=== PATIENT | male | born 1960 | race Caucasian/White ===

== ENCOUNTER 2021-06-08 16:56 | Inpatient (IN) | payer BC ==
[~2021-06-08] VITALS: Ht 188 cm; Wt 127.0 kg
[2021-06-08 17:33] LABS: BASOPHILS # (AUTO) 0.1 X10'3 (0-0.2); BASOPHILS % (AUTO) 0.6 % (0-1); EOSINOPHILS # (AUTO) 0.2 X10'3 (0-0.9); EOSINOPHILS % (AUTO) 1.2 % (0-6); HEMATOCRIT 51.1 % (42.0-52.0); HEMOGLOBIN 17.5 g/dl (14.0-17.9); LYMPHOCYTES # (AUTO) 1.8 X10'3 (1.1-4.8); LYMPHOCYTES % (AUTO) 10.7 % (21-51); MEAN CORPUSCULAR HEMOGLOBIN 31.6 PG (27.0-31.0); MEAN CORPUSCULAR HGB CONC 34.3 g/dL (33.0-36.5); MEAN CORPUSCULAR VOLUME 92.3 FL (78-98); MEAN PLATELET VOLUME 11.4 FL (7.4-10.4); MONOCYTES # (AUTO) 0.9 X10'3 (0-0.9); MONOCYTES % (AUTO) 5.5 % (2-12); NEUTROPHILS # (AUTO) 13.4 X10'3 (1.8-7.7); PLATELET COUNT 196 X10'3 (140-440); RED BLOOD COUNT 5.53 X10'6 (4.70-6.10); RED CELL DISTRIBUTION WIDTH 12.7 % (11.5-14.5); WHITE BLOOD COUNT 16.3 X10'3 (4.5-11.0)
[2021-06-08] MEDS ORDERED: ondansetron/PF 4mg/2ml inj IV ONE ×2 (17:40→19:25)
[2021-06-08] MEDS ORDERED: famotidine/PF 10 mg/ml inj IV ONE (17:40)
[2021-06-08] MEDS ORDERED: normal saline 1000ML IV soln IVB ONE ×2 (17:40→19:25)
[2021-06-08] MEDS ORDERED: pantoprazole 40MG/D5 100ML BAG 100 ML IV ONE (17:40)
[2021-06-08 17:44] LABS: ALANINE AMINOTRANSFERASE 44 U/L (12-78); ALBUMIN 4.2 G/DL (3.4-5.0); ALKALINE PHOSPHATASE 103 IU/L (46-116); ANION GAP 11 (8-16); ASPARTATE AMINO TRANSFERASE 61 U/L (10-37); BILIRUBIN,TOTAL 1.9 MG/DL (0.1-1.0); BLOOD UREA NITROGEN 13 MG/DL (7-18); BUN/CREATININE RATIO 11.8 (5.4-32.0); CHLORIDE 93 MMOL/L (99-107); GLUCOSE 273 MG/DL (70-104); POTASSIUM 3.7 MMOL/L (3.5-5.1); SODIUM 131 MMOL/L (135-145); TOTAL CARBON DIOXIDE 27.3 MMOL/L (24-32); TOTAL PROTEIN 8.5 G/DL (6.4-8.2); eGFR 69 ML/MIN
[2021-06-08 17:54] LABS: PLATELET ESTIMATE NORMAL; TOTAL CELLS COUNTED 100; TOXIC GRANULATION 1+
[2021-06-08] MEDS: morphine 4 MG/ML inj SYRINge IV PRN ×2 (17:58→19:08)
[2021-06-08 18:03] LABS: LIPASE 18637 U/L (73-393)
[2021-06-08] MEDS ORDERED: pantoprazole 40MG/NS 100ML BAG 100 ML IV ONE (18:10)
[2021-06-08] MEDS ORDERED: piperacillin/tazo 3.375gm/50ml 50 ML IV ONE (19:25)
[2021-06-08] MEDS ORDERED: normal saline 1000ml 1,000 ML IV ONE (19:25)
[2021-06-08] MEDS ORDERED: HYDROmorphone 1 mg/ml syringe IV ONE (19:25)
[2021-06-08 20:16] LABS: CHOL/HDL RATIO 7.2 (0.00-4.99); CHOLESTEROL 253 MG/DL (0-200); HDL CHOLESTEROL 35 MG/DL (35-60); LDL CHOLESTEROL 123 MG/DL (50-100); TRIGLYCERIDES 577 MG/DL (20-135)
[2021-06-08] MEDS ORDERED: acetaminophen 325mg tablet PO PRN ×2 (20:25)
[2021-06-08] MEDS ORDERED: magnesium Cl slow-release 64mg tablet PO PRN (20:25)
[2021-06-08] MEDS: normal saline 1000ml 1,000 ML IV SCH (20:25)
[2021-06-08] MEDS ORDERED: morphine 2 MG/ML inj. syringe IV PRN ×2 (20:25)
[2021-06-08] MEDS ORDERED: magnesium 4gm in 100ml NS 100 ML IV PRN (20:25)
[2021-06-08] MEDS ORDERED: ondansetron/PF 4mg/2ml inj IV PRN (20:25)
[2021-06-08] MEDS ORDERED: HYDROcodone/acetaminophen 5mg/325mg tablet PO PRN (20:25)
[2021-06-08] MEDS ORDERED: magnesium 2GM in 50ml NS 50 ML IV PRN (20:25)
[2021-06-08] MEDS ORDERED: potassium Cl 20 mEq SR tablet PO PRN ×2 (20:25)
[2021-06-08] MEDS ORDERED: potassium CL 10mEq/100ml bag 100 ML IV PRN (20:25)
[2021-06-08] MEDS ORDERED: LORazepam 2 mg/ml vial IV PRN (20:50)
[2021-06-08] MEDS ORDERED: dextrose 50%-water 50ml dispensing syringe IV PRN ×2 (20:50)
[2021-06-08] MEDS ORDERED: LORazepam 1 MG tablet PO PRN (20:50)
[2021-06-08] MEDS ORDERED: haloperidol 5mg tablet PO PRN (20:50)
[2021-06-08] MEDS ORDERED: MESSAGE TO PHARMACY PO ONE (20:50)
[2021-06-08] MEDS ORDERED: glucagon, human recombinant 1mg kit SUBCUT PRN (20:50)
[2021-06-08] MEDS ORDERED: dextrose ORAL solution 15 GM/59 ML bottle PO PRN ×2 (20:50)
[2021-06-08] MEDS ORDERED: haloperidol lactate 5mg/ml inj IM PRN (20:50)
[2021-06-08] MEDS ORDERED: AMPH10TA23 PO (21:03)
[2021-06-08] MEDS ORDERED: CANA100T PO (21:03)
[2021-06-08] MEDS ORDERED: LISI40TA13 PO (21:03)
[2021-06-08] MEDS ORDERED: PANT-47 PO (21:03)
[2021-06-08] MEDS ORDERED: ICOS1CAP PO (21:03)
[2021-06-08] MEDS ORDERED: ACET-2119 PO (21:03)
[2021-06-08] MEDS ORDERED: ASPI-611 PO (21:03)
[2021-06-08] MEDS ORDERED: ATOR10TA PO (21:03)
[2021-06-08] MEDS ORDERED: FENO145T46 PO (21:03)
[2021-06-08] MEDS ORDERED: ACYC-129 PO (21:03)
[2021-06-08] MEDS ORDERED: VENL150C2 PO (21:03)
[2021-06-08 21:15] LABS: HEMOGLOBIN A1C 8.4 % (4.5-6.2)
--- NOTE | 2021-06-08 21:57 | NUR ---
Note carlee in EDM - 06/08/21 at 2202 by AUDREY Patient unwilling to use bedside commode and wants to go to the ER bathroom. PT told with weeping surgical wound and heparin running, it is too much of a risk to his safety and that the bedside commode is the option right now. Pt also unhappy that he has not had his flowmax, to ease urination, or food or water. Pt demanded to leave AMA. Pt given a room assignment upstairs in hopes that he would find the bathroom facilities more agreeable. Pt told that if after moving upstairs and talking to the Hospitalist if he still wants to leave AMA he can arrange that throught the hospitalist.
[2021-06-08 22:07] LABS: CLARITY,URINE CLEAR (Clear); COLOR,URINE YELLOW (Yellow); GLUCOSE, URINE >=1000 mg/dl (Neg); KETONES,URINE 15 mg/dl (Neg); LEUKOCYTE ESTERASE ,URINE NEGATIVE (Neg); NITRITES, URINE NEGATIVE (Neg); OCCULT BLOOD,URINE NEGATIVE (Neg); PH,URINE 5.5 (4.8-8.0); PROTEIN,URINE TRACE mg/dl (Neg)
[2021-06-08 22:12] LABS: UA COLLECTION TYPE VOIDED
[2021-06-08 22:14] LABS: BACTERIA,URINE NONE SEEN /HPF (Neg); RBC,URINE 0-2 /HPF (0-2); SQUAMOUS EPITHELIAL CELL,UR FEW /LPF (FEW); WBC,URINE 0-4 /HPF (0-4)
[2021-06-08 22:38] VITALS: BP 119/79
[2021-06-08] MEDS: atenolol 25mg tablet PO SCH (23:00)
[2021-06-08] MEDS: insulin glargine (Lantus) pen - multi-dose SQ SCH (23:02)
[2021-06-08] MEDS: heparin, porcine 5000 units/ml vial SQ SCH (23:06)
[2021-06-09] MEDS: piperacillin/tazo 3.375gm/50ml 50 ML IV SCH ×4 (00:42→23:21)
[2021-06-09] MEDS: HYDROcodone/acetaminophen 10/325mg tab PO PRN (00:43)
[2021-06-09] MEDS: normal saline 1000ml 1,000 ML IV SCH ×4 (03:18→18:59)
[2021-06-09 05:59] LABS: WHITE BLOOD COUNT 9.9 X10'3 (4.5-11.0)
[2021-06-09 06:01] LABS: HEMATOCRIT 42.7 % (42.0-52.0); HEMOGLOBIN 14.7 g/dl (14.0-17.9); MEAN CORPUSCULAR HEMOGLOBIN 32.2 PG (27.0-31.0); MEAN CORPUSCULAR HGB CONC 34.3 g/dL (33.0-36.5); MEAN CORPUSCULAR VOLUME 93.7 FL (78-98); MEAN PLATELET VOLUME 10.6 FL (7.4-10.4); PLATELET COUNT 101 X10'3 (140-440); RED BLOOD COUNT 4.56 X10'6 (4.70-6.10); RED CELL DISTRIBUTION WIDTH 12.7 % (11.5-14.5)
[2021-06-09 06:27] LABS: ALANINE AMINOTRANSFERASE 100 U/L (12-78); ALBUMIN 3.3 G/DL (3.4-5.0); ALBUMIN/GLOBULIN RATIO 1.1 (1.1-1.5); ALKALINE PHOSPHATASE 88 IU/L (46-116); ANION GAP 9 (8-16); ASPARTATE AMINO TRANSFERASE 134 U/L (10-37); BILIRUBIN,TOTAL 1.6 MG/DL (0.1-1.0); BLOOD UREA NITROGEN 16 MG/DL (7-18); BUN/CREATININE RATIO 17.6 (5.4-32.0); CALCIUM 8.6 MG/DL (8.5-10.1); CHLORIDE 100 MMOL/L (99-107); CREATININE 0.91 MG/DL (0.60-1.10); GLUCOSE 186 MG/DL (70-104); LIPASE 518 U/L (73-393); MAGNESIUM 1.7 MG/DL (1.5-2.4); POTASSIUM 4.6 MMOL/L (3.5-5.1); SODIUM 134 MMOL/L (135-145); TOTAL CARBON DIOXIDE 25.2 MMOL/L (24-32); TOTAL PROTEIN 6.4 G/DL (6.4-8.2); eGFR 85 ML/MIN
--- NOTE | 2021-06-09 06:28 | NUR ---
PAGER ID: [phone] MESSAGE: RANJIT COFFMAN 349B: POSITIVE BLOOD CULTURE: GRAM NEGATIVE RODS FROM ANAEROBIC BOTTLE TAKEN FROM LEFT ARM ON 06/08. THANK YOU HELGA [id number]
--- NOTE | 2021-06-09 06:28 | NUR ---
Problems reprioritized. Patient report given, questions answered & plan of care reviewed with Brianna CALDWELL.
--- NOTE | 2021-06-09 06:40 | NUR ---
Patient in room [facility]B. I have received report from PAULETTE VALLEJO and had the opportunity to ask questions and assume patient care.
--- NOTE | 2021-06-09 07:23 | NUR ---
POSITIVE BLOOD CULTURE GRAM NEGATIVE RODS IN AEROBIC BOTTLE @ 10.41 HRS. Message: RANJIT RM 349B: POSITIVE BLOOD CULTURE GRAM NEGATIVE RODS IN AEROBICV BOTTLE @ 10.41 HRS. ALSO GRAM NEGATIVE RODS IN ANAEROBIC BOTTLE THAT RESULTED ABOUT AN HOUR AGO. THANKS HELGA [place] Transaction number: [id number]
[2021-06-09] MEDS ORDERED: dextroamphetamine/amphetamine 5mg tablet PO SCH (08:00)
[2021-06-09] MEDS: nicotine 14mg patch - 24hr TD SCH (08:00)
[2021-06-09] MEDS: K and/or MAG REPLACEMENT MC SCH ×2 (08:00→19:01)
[2021-06-09] MEDS ORDERED: VASCEPA 1 GM PO SCH (08:00)
[2021-06-09] MEDS: venlafaxine XR 75mg capsule (Q24H) PO SCH (08:05)
[2021-06-09] MEDS: lisinopril 20mg tablet PO SCH (08:05)
[2021-06-09] MEDS: atenolol 25mg tablet PO SCH (08:05)
[2021-06-09] MEDS: atorvastatin 20mg tablet PO SCH (08:05)
[2021-06-09] MEDS: insulin Lispro (HumaLOG) vial - multi-dose SQ SCH ×5 (08:10→21:37)
[2021-06-09] MEDS: heparin, porcine 5000 units/ml vial SQ SCH ×3 (08:11→23:32)
[2021-06-09 08:12] LABS: LARGE PLATELETS FEW; PLATELET ESTIMATE DECREASED; TOTAL CELLS COUNTED 100
[2021-06-09 08:14] VITALS: BP 125/77
--- NOTE | 2021-06-09 08:38 | NUR ---
DID NOT GIVE PROTONIX IV INFUSION DUE TO MED NOT BEING STOCKED IN PATIENT SPECIFIC
[2021-06-09] MEDS: multivitamins, therapeutics tablet PO SCH (09:08)
[2021-06-09] MEDS: pantoprazole 40MG/NS 100ML BAG 100 ML IV SCH ×2 (10:32→19:00)
[2021-06-09 11:00] VITALS: BP 100/63
--- NOTE | 2021-06-09 12:19 | NUR ---
DM Consult: Noted pt A1c of 8.4. Pt seen at bedside by RD and campus recruiting intern; provided written and verbal DM education and RD contact information. Addendum: 06/09/21 at 1220 by Donavan Lyon - Shipping Specialist ISIDRA Amended: Links added. Addendum: 06/09/21 at [address] I have reviewed assessment by campus recruiting intern
[2021-06-09 18:00] VITALS: BP 122/79
--- NOTE | 2021-06-09 18:08 | NUR ---
Problems reprioritized. Patient report given, questions answered & plan of care reviewed with PAULETTE RAMESH.
--- NOTE | 2021-06-09 18:35 | NUR ---
Patient in room [facility]. I have received report from Brianna CALDWELL and had the opportunity to ask questions and assume patient care.
[2021-06-09] MEDS: lactobacillus rhamnosus 10,000 MMU CELLS/CAPSULE PO SCH (19:02)
[2021-06-09 19:56] VITALS: BP 122/79
[2021-06-09] MEDS: insulin glargine (Lantus) pen - multi-dose SQ SCH (21:33)
[2021-06-09] MEDS ORDERED: NORMAL SALINE IV ONE (21:40)
[2021-06-09] MEDS ORDERED: SINCALIDE IV ONE (21:40)
[2021-06-09] MEDS ORDERED: sincalide inj 0 MCG in normal saline 50ml IV soln 50 ML IV ONE (22:05)
[2021-06-09] MEDS ORDERED: temazepam 15mg capsule PO PRN (23:05)
[2021-06-09 23:57] VITALS: BP 126/81
[2021-06-10] MEDS: normal saline 1000ml 1,000 ML IV SCH ×2 (02:51→16:58)
--- NOTE | 2021-06-10 06:18 | NUR ---
Problems reprioritized. Patient report given, questions answered & plan of care reviewed with Brianna CALDWELL.
--- NOTE | 2021-06-10 06:23 | NUR ---
Patient in room [facility] 349B. I have received report from PAULETTE RAMESH and had the opportunity to ask questions and assume patient care.
[2021-06-10 06:50] LABS: BASOPHILS % (AUTO) 0.4 % (0-1); EOSINOPHILS % (AUTO) 0.5 % (0-6); HEMATOCRIT 37.6 % (42.0-52.0); HEMOGLOBIN 12.9 g/dl (14.0-17.9); LYMPHOCYTES # (AUTO) 0.7 X10'3 (1.1-4.8); LYMPHOCYTES % (AUTO) 7.2 % (21-51); MEAN CORPUSCULAR HGB CONC 34.3 g/dL (33.0-36.5); MEAN CORPUSCULAR VOLUME 93.1 FL (78-98); MEAN PLATELET VOLUME 11.2 FL (7.4-10.4); MONOCYTES # (AUTO) 0.7 X10'3 (0-0.9); MONOCYTES % (AUTO) 7.9 % (2-12); NEUTROPHILS # (AUTO) 7.9 X10'3 (1.8-7.7); PLATELET COUNT 89 X10'3 (140-440); RED BLOOD COUNT 4.04 X10'6 (4.70-6.10); RED CELL DISTRIBUTION WIDTH 12.5 % (11.5-14.5); WHITE BLOOD COUNT 9.4 X10'3 (4.5-11.0)
[2021-06-10 07:00] VITALS: BP 128/75
[2021-06-10 07:24] LABS: ALANINE AMINOTRANSFERASE 148 U/L (12-78); ALBUMIN 2.8 G/DL (3.4-5.0); ALBUMIN/GLOBULIN RATIO 0.8 (1.1-1.5); ALKALINE PHOSPHATASE 93 IU/L (46-116); ANION GAP 10 (8-16); ASPARTATE AMINO TRANSFERASE 121 U/L (10-37); BILIRUBIN,TOTAL 1.6 MG/DL (0.1-1.0); BLOOD UREA NITROGEN 14 MG/DL (7-18); BUN/CREATININE RATIO 14.7 (5.4-32.0); CALCIUM 8.2 MG/DL (8.5-10.1); CHLORIDE 102 MMOL/L (99-107); CREATININE 0.95 MG/DL (0.60-1.10); GLUCOSE 187 MG/DL (70-104); LIPASE 150 U/L (73-393); POTASSIUM 3.8 MMOL/L (3.5-5.1); SODIUM 137 MMOL/L (135-145); TOTAL CARBON DIOXIDE 24.9 MMOL/L (24-32); TOTAL PROTEIN 6.2 G/DL (6.4-8.2); eGFR 81 ML/MIN
[2021-06-10] MEDS: pantoprazole 40MG/NS 100ML BAG 100 ML IV SCH ×2 (07:38→19:59)
[2021-06-10] MEDS: piperacillin/tazo 3.375gm/50ml 50 ML IV SCH ×2 (07:38→16:54)
[2021-06-10] MEDS: lactobacillus rhamnosus 10,000 MMU CELLS/CAPSULE PO SCH ×2 (07:44→19:55)
[2021-06-10] MEDS: multivitamins, therapeutics tablet PO SCH (07:45)
[2021-06-10] MEDS: nicotine 14mg patch - 24hr TD SCH (07:45)
[2021-06-10] MEDS: atorvastatin 20mg tablet PO SCH (07:45)
[2021-06-10] MEDS: lisinopril 20mg tablet PO SCH (07:45)
[2021-06-10] MEDS: venlafaxine XR 75mg capsule (Q24H) PO SCH (07:45)
[2021-06-10] MEDS: atenolol 25mg tablet PO SCH (07:45)
[2021-06-10] MEDS: insulin Lispro (HumaLOG) vial - multi-dose SQ SCH ×2 (07:49→19:01)
[2021-06-10] MEDS: heparin, porcine 5000 units/ml vial SQ SCH ×2 (07:51→16:00)
[2021-06-10] MEDS: K and/or MAG REPLACEMENT MC SCH ×2 (08:00→19:47)
[2021-06-10] MEDS ORDERED: NORMAL SALINE IV ONE ×2 (10:20→10:25)
[2021-06-10] MEDS ORDERED: SINCALIDE IV ONE ×2 (10:20→10:25)
[2021-06-10 18:00] VITALS: BP 133/65
--- NOTE | 2021-06-10 18:31 | NUR ---
Problems reprioritized. Patient report given, questions answered & plan of care reviewed with JHONATHAN RING RN.
--- NOTE | 2021-06-10 18:35 | NUR ---
Patient in room [facility]. I have received report from HELGA CALDWELL and had the opportunity to ask questions and assume patient care.
[2021-06-10] MEDS: insulin glargine (Lantus) pen - multi-dose SQ SCH (21:48)
[2021-06-10] MEDS: HYDROcodone/acetaminophen 10/325mg tab PO PRN (23:59)
[2021-06-11] VITALS: BP 152/81
[2021-06-11] MEDS: piperacillin/tazo 3.375gm/50ml 50 ML IV SCH ×2 (00:01→09:01)
[2021-06-11] MEDS: normal saline 1000ml 1,000 ML IV SCH (00:12)
--- NOTE | 2021-06-11 06:19 | NUR ---
Problems reprioritized. Patient report given, questions answered & plan of care reviewed with SHADI CALDEWLL.
[2021-06-11 06:36] LABS: BASOPHILS % (AUTO) 0.5 % (0-1); EOSINOPHILS # (AUTO) 0.1 X10'3 (0-0.9); EOSINOPHILS % (AUTO) 1.4 % (0-6); HEMATOCRIT 36.6 % (42.0-52.0); HEMOGLOBIN 12.6 g/dl (14.0-17.9); LYMPHOCYTES # (AUTO) 0.5 X10'3 (1.1-4.8); LYMPHOCYTES % (AUTO) 7.4 % (21-51); MEAN CORPUSCULAR HEMOGLOBIN 32.1 PG (27.0-31.0); MEAN CORPUSCULAR HGB CONC 34.5 g/dL (33.0-36.5); MEAN CORPUSCULAR VOLUME 93.1 FL (78-98); MEAN PLATELET VOLUME 11.1 FL (7.4-10.4); MONOCYTES # (AUTO) 0.6 X10'3 (0-0.9); MONOCYTES % (AUTO) 9.7 % (2-12); NEUTROPHILS # (AUTO) 5.2 X10'3 (1.8-7.7); PLATELET COUNT 94 X10'3 (140-440); RED BLOOD COUNT 3.93 X10'6 (4.70-6.10); RED CELL DISTRIBUTION WIDTH 12.4 % (11.5-14.5); WHITE BLOOD COUNT 6.4 X10'3 (4.5-11.0)
[2021-06-11 06:42] LABS: ALANINE AMINOTRANSFERASE 97 U/L (12-78); ALBUMIN 2.5 G/DL (3.4-5.0); ALBUMIN/GLOBULIN RATIO 0.7 (1.1-1.5); ALKALINE PHOSPHATASE 105 IU/L (46-116); ANION GAP 13 (8-16); ASPARTATE AMINO TRANSFERASE 49 U/L (10-37); BILIRUBIN,TOTAL 1.3 MG/DL (0.1-1.0); BLOOD UREA NITROGEN 12 MG/DL (7-18); BUN/CREATININE RATIO 17.4 (5.4-32.0); CALCIUM 8.2 MG/DL (8.5-10.1); CHLORIDE 101 MMOL/L (99-107); CREATININE 0.69 MG/DL (0.60-1.10); GLUCOSE 189 MG/DL (70-104); LIPASE 162 U/L (73-393); MAGNESIUM 1.9 MG/DL (1.5-2.4); POTASSIUM 3.7 MMOL/L (3.5-5.1); SODIUM 135 MMOL/L (135-145); TOTAL CARBON DIOXIDE 20.8 MMOL/L (24-32); TOTAL PROTEIN 6.1 G/DL (6.4-8.2); eGFR > 90 ML/MIN
[2021-06-11 07:00] VITALS: BP 128/74
[2021-06-11 07:45] LABS: LARGE PLATELETS FEW; PLATELET ESTIMATE DECREASED
[2021-06-11] MEDS: heparin, porcine 5000 units/ml vial SQ SCH ×2 (08:00)
[2021-06-11] MEDS: K and/or MAG REPLACEMENT MC SCH (08:00)
[2021-06-11] MEDS: nicotine 14mg patch - 24hr TD SCH (08:00)
[2021-06-11] MEDS: pantoprazole 40MG/NS 100ML BAG 100 ML IV SCH (08:59)
[2021-06-11] MEDS: lisinopril 20mg tablet PO SCH (09:02)
[2021-06-11] MEDS: atorvastatin 20mg tablet PO SCH (09:03)
[2021-06-11] MEDS: lactobacillus rhamnosus 10,000 MMU CELLS/CAPSULE PO SCH (09:03)
[2021-06-11] MEDS: multivitamins, therapeutics tablet PO SCH (09:03)
[2021-06-11] MEDS: venlafaxine XR 75mg capsule (Q24H) PO SCH (09:03)
[2021-06-11] MEDS: atenolol 25mg tablet PO SCH (09:03)
[2021-06-11] MEDS: insulin Lispro (HumaLOG) vial - multi-dose SQ SCH (09:13)
[2021-06-11 12:58] VITALS: BP 119/68
[2021-06-11] MEDS ORDERED: THIA50TA10 PO (13:27)
[2021-06-11] MEDS ORDERED: LACT1CAP26 PO (13:27)
[2021-06-11] MEDS ORDERED: PANT40TA54 PO (13:27)
[2021-06-11] MEDS ORDERED: ATEN-168 PO (13:27)
[2021-06-11] MEDS ORDERED: LEVO750T46 PO (13:27)
[2021-06-11] MEDS ORDERED: FOLI0.4T6 PO (13:27)
[2021-06-11] MEDS ORDERED: MULT-25 PO (13:27)
[2021-06-11] MEDS ORDERED: METF-1203 PO (13:27)
--- NOTE | 2021-06-11 16:00 | NUR ---
Patient stable and appropriate for discharge home with family. IV removed, all belongings taken from room. [facility] [address] All discharge instructions and education given and reviewed with patient and family. All questions answered.
[2021-06-13] MEDS ORDERED: thiamine 100mg tablet PO SCH (08:00)
[2021-06-13] MEDS ORDERED: folic acid 1mg tablet PO SCH (08:00)
== END 2021-06-11 16:00 | disposition home or self-care (01) | DRG 871 ==
LOC: ER 16:57 → ED HOLD 20:29 → SUR 3N 22:26
PROVIDERS: ADMIT Internal Medicine; ATTEND Family Medicine
PROC: CF1C1ZZ Planar Nuclear Medicine Imaging of Hepatobiliary System, All using Technetium 99m (Tc-99m) (ICD-10-PCS; principal; 2021-06-10)
DX: A41.9 Sepsis, unspecified organism (principal); K85.10 Biliary acute pancreatitis without necrosis or infection; E87.1 Hypo-osmolality and hyponatremia; K80.00 Calculus of gallbladder with acute cholecystitis without obstruction; E11.9 Type 2 diabetes mellitus without complications; E66.9 Obesity, unspecified; E78.5 Hyperlipidemia, unspecified; F17.210 Nicotine dependence, cigarettes, uncomplicated; F32.A Depression, unspecified; F90.9 Attention-deficit hyperactivity disorder, unspecified type; I10 Essential (primary) hypertension; K29.80 Duodenitis without bleeding; K43.9 Ventral hernia without obstruction or gangrene; Z20.822 Contact with and (suspected) exposure to COVID-19; K57.30 Diverticulosis of large intestine without perforation or abscess without bleeding; N20.0 Calculus of kidney; Z87.11 Personal history of peptic ulcer disease; Z68.35 Body mass index [BMI] 35.0-35.9, adult; Z79.899 Other long term (current) drug therapy; Z79.82 Long term (current) use of aspirin
CPT/HCPCS: 36415; 71045; 74176; 74181; 78227; 80053; 80061; 81001; 82948; 83036; 83605; 83690; 83735; 84145; 84484; 85007; 85008; 85025; 87040; 87077; 87081; 87186; 87635; 93005; 96361; 96365; 96375; 96376; 97116; 97161; 97530; 99285; A9537; C9113; C9803; G0378; J1170; J1644; J1815; J2270; J2405; J2543; J3490; J7030